=== PATIENT | male | born 1980 | race Caucasian/White ===

== ENCOUNTER 2019-05-15 13:12 | Emergency (ER) | payer BC, OTHER ==
--- NOTE | 2019-05-15 14:00 | CT ---
[id number] CT/CT Head WO IV EXAM: NONCONTRAST HEAD CT INDICATION: Headache and blurred vision. COMPARISON: None. DISCUSSION: Partially empty sella. The ventricles and sulci are normal in size and configuration. The rodgers and white matter are normal in attenuation. No mass effect or midline shift. No acute hemorrhage or extra-axial fluid collection. No acute territorial infarct is identified. Moderate mucosal thickening in the inferior recesses of both maxillary sinuses. Moderate scattered bilateral ethmoid sinus mucosal thickening. IMPRESSION: 1. No acute intracranial findings. 2. Paranasal sinus mucosal thickening. Hitesh Hollis MD 05/15/19 [id number] Thank you for allowing us to participate in the care of your patient.
--- NOTE | 2019-05-20 04:13 | EDM.PDOC ---
ED HPI GENERAL MEDICAL PROBLEM - General Chief Complaint: Headache Stated Complaint: HEAD PAIN/FOREHEAD Time Seen by Provider: 05/15/19 13:15 Source of Information: Reports: Patient History Limitations: Reports: No Limitations - History of Present Illness INITIAL COMMENTS - FREE TEXT/NARRATIVE: PtSushant presents to ER with complaints of severe headache, photophobia, and nausea via EMS. He works for the [employer] and states this started while in the train. Denies any recent trauma to the head. CO level is normal. He denies any history of migraine, and states that he took ibuprofen prior to arrival of EMS. By the time he arrived to ED, the pain was gone. Denies any fever or chills. No facial/extremity numbness. Onset Date: 05/15/19 Location: Reports: Head Quality: Reports: Throbbing Headache Pain Score (Numeric/FACES): 1 - Related Data Allergies Allergy/AdvReac Type Severity Reaction Status Date / Time No Known Allergies Allergy Verified 05/15/19 13:26 Home Meds: Home Meds Lisinopril 2.5 mg PO DAILY 05/15/19 [History] Semaglutide [Ozempic] 1 mg SQ Q7D 05/15/19 [History] metFORMIN HCl [Metformin HCl ER] 500 mg PO DAILY 05/15/19 [History] Past Medical History Cardiovascular History: Reports: Hypertension Endocrine/Metabolic History: Reports: Diabetes, Type II Social & Family History - Tobacco Use Smoking Status *Q: Never Smoker ED ROS GENERAL - Review of Systems Review Of Systems: See Below Constitutional: Reports: No Symptoms HEENT: Reports: No Symptoms Respiratory: Reports: No Symptoms Cardiovascular: Reports: No Symptoms Endocrine: Reports: No Symptoms GI/Abdominal: Reports: No Symptoms : Reports: No Symptoms Musculoskeletal: Reports: No Symptoms Skin: Reports: No Symptoms Neurological: Reports: Headache (resolved) Psychiatric: Reports: No Symptoms Hematologic/Lymphatic: Reports: No Symptoms Immunologic: Reports: No Symptoms ED EXAM, GENERAL - Physical Exam Exam: See Below Exam Limited By: No Limitations General Appearance: Alert, WD/WN, No Apparent Distress Eye Exam: Bilateral Eye: EOMI, Normal Fundi, Normal Inspection, PERRL Nose: Normal Inspection, Normal Mucosa, No Blood Throat/Mouth: Normal Inspection, Normal Lips, Normal Teeth, Normal Gums, Normal Oropharynx, Normal Voice, No Airway Compromise Head: Atraumatic, Normocephalic Neck: Normal Inspection, Supple, Non-Tender, Full Range of Motion Respiratory/Chest: No Respiratory Distress, Lungs Clear, Normal Breath Sounds, No Accessory Muscle Use, Chest Non-Tender Cardiovascular: Normal Peripheral Pulses, Regular Rate, Rhythm, No Edema, No JVD Neurological: Alert, Oriented, CN II-XII Intact, Normal Cognition, Normal Gait, Normal Reflexes, No Motor/Sensory Deficits Course - Vital Signs Last Recorded V/S: Last Vital Signs Temp 36.2 C 05/15/19 13:10 Pulse 94 05/15/19 13:10 Resp 16 05/15/19 13:10 BP 131/79 05/15/19 13:10 Pulse Ox 98 05/15/19 13:10 - Radiology Interpretation Free Text/Narrative:: CT brain negative Departure - Departure Time of Disposition: 15:00 Disposition: Home, Self-Care 01 Clinical Impression: Migraine - Discharge Information Instructions: Migraine Headache Referrals: PCP,Not In Area [Primary Care Provider] - Forms: ED Department Discharge Additional Instructions: Home to rest. Tylenol and ibuprofen for discomfort. Drink plenty of fluids. Recheck in clinic in 10-14 days, sooner if not gradually improving. - Assessment/Plan Plan: Home to rest. Tylenol and ibuprofen for discomfort. Drink plenty of fluids. Recheck in clinic in 10-14 days, sooner if not gradually improving.
== END 2019-05-15 14:20 | disposition home or self-care (01) ==
LOC: VM.ED 13:12
DX: G43.909 Migraine, unspecified, not intractable, without status migrainosus (principal); I10 Essential (primary) hypertension; E11.9 Type 2 diabetes mellitus without complications; Z79.84 Long term (current) use of oral hypoglycemic drugs; Z79.899 Other long term (current) drug therapy
CPT/HCPCS: 70450; 99284-25